=== PATIENT | female | born 1990 | race Caucasian/White ===

== ENCOUNTER 2016-06-09 11:19 | Emergency (ER) | payer OTHER ==
[2016-06-09 12:58] VITALS: BP 106/55
--- NOTE | 2016-06-09 13:31 | RAD ---
INDICATION: Foreign body sensation mid neck status post swallowing pills. COMPARISON: Comparison is made with a prior cervical spine series from December 07, 2014. TECHNIQUE: AP and lateral images of the soft tissue of the neck were obtained. FINDINGS: The epiglottis and aryepiglottic folds appear to be within normal limits. The retropharyngeal soft tissues appear normal. The airway appears patent. No foreign body is seen. IMPRESSION: NO EVIDENCE FOR FOREIGN BODY.
--- NOTE | 2016-06-09 16:00 | UC ---
Karolyn Garcia Alok, scribed for Elida King MD on 06/09/16 at 1302 . Complaint Female HPI - HPI Summary HPI Summary: 26 yo female c/o st and f/b sensation mid neck since last evening approx 22:30 when swallowed routine meds (bcp and mvi). Able to tolerate po fluids and solid but uncomfortable. No sob. No drooling. Voice hoarse. Recently has been seen by pcp for generalized sore throat, rst neg and full cx unremark. Notes children are on abx for sore throats. No rash. No GI issues. - History Of Current Complaint Chief Complaint: UCGU Stated Complaint: THROAT COMPLAINT Time Seen by Provider: 06/09/16 12:47 Hx Obtained From: Patient Hx Last Menstrual Period: 3 WEEKS AGO ?: No Onset/Duration: Sudden Onset - see hpi - Allergies/Home Medications Allergies/Adverse Reactions: Allergies Allergy/AdvReac Type Severity Reaction Status Date / Time No Known Allergies Allergy Verified 06/09/16 12:54 Home Medications: Home Medications Control 1 tab PO QPM 06/09/16 [History] PMH/Surg Hx/FS Hx/Imm Hx Previously Healthy: Yes Endocrine History Of: Denies: Diabetes, Thyroid Disease Cardiovascular History Of: Denies: Cardiac Disorders, Hypertension Respiratory History Of: Denies: COPD, Asthma GI/ History Of: Denies: Ulcer - Surgical History Surgical History: None - Social History Alcohol Use: None Substance Use Type: None Smoking Status (MU): Former Smoker - Immunization History Most Recent Influenza Vaccination: had 2013 Most Recent Tetanus Shot: had Most Recent Pneumonia Vaccination: none Review of Systems Constitutional: Negative Skin: Negative Eyes: Negative ENT: Ear Ache - mild au, Other - see hpi Respiratory: Negative Cardiovascular: Negative Gastrointestinal: Negative Genitourinary: Negative Motor: Negative Neurovascular: Negative Musculoskeletal: Negative Neurological: Negative Psychological: Negative All Other Systems Reviewed And Are Negative: Yes Physical Exam Triage Information Reviewed: Yes Appearance: Well-Nourished - sitting up Vital Signs: Initial Vital Signs Temp 98.3 F 06/09/16 12:54 Pulse 62 06/09/16 12:54 Resp 16 06/09/16 12:54 BP 106/55 06/09/16 12:54 Pulse Ox 98 06/09/16 12:54 Vital Signs Reviewed: Yes Eye Exam: Normal ENT: Positive: TMs normal - hitchcock, but good light reflex au, Other: - c/o tender mid ant neck just below level of cric cartilage region. Neck supple. No adenopathy noted. Tongue not elevated. Post visible pharynx mild redness, uvula midline, w/o tonsillar exudate or swelling. No stridor. Voice a little hoarse. Neck exam: Other - see above Neck: Positive: No Lymphadenopathy Respiratory Exam: Normal Respiratory: Positive: Chest non-tender, Lungs clear, Normal breath sounds, No respiratory distress Cardiovascular Exam: Normal Cardiovascular: Positive: RRR, No Murmur, Pulses Normal, Brisk Capillary Refill Abdominal Exam: Normal Abdomen Description: Positive: Nontender Musculoskeletal Exam: Normal Neurological Exam: Normal Psychological Exam: Normal Skin Exam: Normal - no rash visible or reported Diagnostics - Radiology Soft Tissue Neck XRAY Xray Interpretation: Positive (See Comments) - IMPRESSION: NO EVIDENCE OF FOREIGN BODY Radiology Interpretation Completed By: Radiologist Re-Evaluation - Re-Evaluation First Eval Re-Evaluation Time: 13:47 Complaint Female Dx - Course Course Of Treatment: No new problems in CCC. Neck xray - nad. Reviewed report w/ pt. D/w Dr. Tarango. Recommned Gaviscon or Maalox otc x 48-72 hours. If worse or no better then f/u ENT office. RST negative today. Questions answered to the best of my ability. - Differential Dx/Diagnosis Provider Diagnoses: Pill esophagitis. URI - Physician Notifications Discussed Patient Care With: Dr Tarango (ENT) @ [id number] Discharge - Discharge Plan Condition: Stable Disposition: HOME Patient Education Materials: Esophagitis (ED) Referrals: Hitesh Torre MD [Primary Care Provider] - Glen Tarango MD [Medical Doctor] - Additional Instructions: Gavison 1 - 2 tablespoon by mouth (liquid) after meals as needed for 48 hours. If symptoms no better, or worse, then please call Dr. Tarango's office to arrange follow up at his office. Please seek medical attention in the meantime for worse or new problems. The documentation as recorded by the Karolyn smallwood Alok accurately reflects the service I personally performed and the decisions made by me, Elida King MD.
== END 2016-06-09 14:06 | disposition home or self-care (01) ==
LOC: UCEAST 11:19
DX: K20.8 Other esophagitis (principal); J06.9 Acute upper respiratory infection, unspecified
CPT/HCPCS: 70360; 87651; 99211; G0463

== ENCOUNTER 2018-10-20 19:58 | Inpatient (IN) | payer OTHER ==
[2018-10-20] MEDS ORDERED: Promethazine INJ(RESTRICTED)* 25 MG/ML 1 ML VIAL IM PRN (21:12)
[2018-10-20] MEDS ORDERED: Nalbuphine* 10 MG/ML 1 ML VIAL IM PRN (21:12)
[2018-10-20] MEDS ORDERED: Lactated Ringers 1000 ML Bag* 1,000 ML IV ONE (22:41)
[2018-10-20] MEDS ORDERED: Buffered Lidocaine 1% SYRIN* 1 ML/SYRINGE INTRADERM ONE (22:41)
[2018-10-20] MEDS ORDERED: Witch Hazel PAD* JAR TOPICAL PRN (22:44)
[2018-10-20] MEDS ORDERED: Glycerin ADULT SUPP PR PRN (22:44)
[2018-10-20] MEDS ORDERED: Dibucaine 1% 28.35 GM TUBE PR PRN (22:44)
--- NOTE | 2018-10-20 22:51 | HP ---
General Information - Reason for Visit Full term presented in early labor. - General Information Maternal Age: 28 Grav: 3 Para: 2 SAB: 1 IEA: 0 Estimated Due Date: 10/20/18 Determined By: LMP Maternal Blood Type and Rh: A Positive - Results this Serology/RPR Result: Non-Reactive Rubella Result: Non-Immune HBsAg Result: Negative HIV Result: Negative GBS Culture Result: Positive Past Medical History Delivery History: See Records Pertinent Past Medical History: See Records Pertinent Past Surgical History: See Records Pertinent Family History: See Records - Antepartal Records Antepartal Records: Reviewed, Uncomplicated Review of Systems Constitutional: Uncomfortable CV Complaint: No Respiratory: Shortness of Breath: No Gastrointestinal: No Nausea/Vomiting, Normal Bowel Movement Genitourinary: No Dysuria, No Bleeding, No Leaking Fluid Musculoskeletal: No Complaint, No Epigastric Pain, Contractions - moderate per patient Neurological: No Headache, No Visual Changes Movement: Normal Exam Allergies/Adverse Reactions: Allergies No Known Allergies Allergy (Verified 10/14/18 21:42) Temp 98.8 BP 115/69 P 93 RR 18 - Measurements Height: 5 ft 9 in Weight: 209 lb Weight in lbs: [phone] Body Mass Index (BMI): 30.8 Pre- Weight: 168 lb Weight Gained This : 41 lbs and 0 ozs - Exam Breast: Breast Exam Deferred CVA: No CVA Tenderness Extremities: No Edema Heart: Normal Rhythm/Heart Sounds HEENT: No Significant Findings Lungs: Clear Bilaterally Reflexes: DTR 2+ Thyroid: No Thyromegaly - Abdominal Exam Abdomen Exam: Non-Tender, Fundal Height Consistent with Dates - Ultrasound/Biophysical Profile Ultrasound Status: Not Done Biophysical Profile: Normal Reactive NST Targeted Exam Findings See L&D Outpatient Visit Provider Note for Findings: N/A Cervical Exam: 2cm Effacement: 70% Station: -2 Presenting Part: Vertex - Pelvic exam per triaging nurse at Labor/delivery 845pm Membrane Status: Intact Bleeding/Discharge: None EFM Findings - External Monitor Findings Baseline Heart Rate: 140 External Monitor Findings: Accelerations Present, No Pattern of Variable or Late Decelerations Contractions: Regular, Moderate, < 45 Seconds - q2-4 minutes Assessment/Plan - Assessment Patient presented in early labor at 2cm dilated per LD nurse at 845 pm. She was Rx with Nubain and phenergan analgesia and at 10pm was completely dilated and delivered precipitiously at 1010pm. - Obstetrical Risk Factors Obstetrical Risk Factors: GBS Positive - Plan Plan: Observe - Admit to Maternal unit.
--- NOTE | 2018-10-20 22:59 | PROCNOTE ---
[facility] OB: Delivery Note - Delivery A Date of : 10/20/18 Time of : 22:10 Sex: Male Weight at : 8 lb 4 oz Score 1 Minute: 8 Score 5 Minutes: 9 Gestational Age in Weeks and Days at Delivery: 40 Weeks and 0 Days Delivery Method: Spontaneous Vaginal Labor: Spontaneous Did Patient attempt ?: N/A, No Previous Amniotic Fluid: Clear Estimated Blood Loss: 200 Anesthesia/Analgesia: None - Nursery Level of Nursery: Regular/Bedside - Perineum Perineal Injury: Vaginal Laceration, 1st Degree Perineal Repair: By Delivering Practioner - Dr. Hitesh Torre - Events Delivery Events of Note: Precipitous Delivery, Antibiotics Indicated - Not Given
[2018-10-20] MEDS ORDERED: Lactated Ringers 1000 ML Bag* 1,000 ML IV SCH ×2 (23:00)
[2018-10-20 23:44] LABS: Urine Benzodiazepine Screen None Detected (None Detect); Urine Opiates Screen None Detected (None Detect)
[2018-10-21] MEDS ORDERED: Lidocaine 1% INJ* 10 MG/ML 30 ML SDV ONE (00:41)
[2018-10-21] MEDS: Acetaminophen TAB* 325 MG PO PRN ×3 (02:14→19:48)
[2018-10-21] MEDS ORDERED: Measles, Mumps,Rubella VACC* 0.5 ML/VIAL SUBCUT ONE (02:22)
[2018-10-21] MEDS: Ibuprofen TAB* 600 MG PO PRN ×2 (05:00→14:41)
[2018-10-21 07:27] LABS: ABS Basophils 0.1 10^3/ul (0-0.2); ABS Lymphocytes 1.6 10^3/ul (1.0-4.8); ABS Neutrophils 15.1 10^3/ul (1.5-7.7); Eosinophil % 0.1 %; Hematocrit 36 % (35-47); Hemoglobin 12.6 g/dL (12.0-16.0); Lymphocyte % 9.1 %; Mean Corpuscular HGB Conc 35 g/dL (31-36); Mean Corpuscular Hemoglobin 33 pg (27-31); Mean Corpuscular Volume 94 fL (80-97); Mean Platelet Volume 8.4 fL (7.4-10.4); Nucleated Red Blood Cells % 0.1; Platelet Count 198 10^3/uL (150-450); Red Blood Count 3.84 10^6 /uL (3.70-4.87); Red Cell Distribution Width 13 % (10-15); White Blood Count 17.9 10^3/uL (3.5-10.8)
[2018-10-21] MEDS ORDERED: Ferrous Gluconate TAB* 324 MG TAB PO SCH (09:00)
[2018-10-21] MEDS: Docusate CAP* 100 MG PO SCH ×3 (10:03→19:48)
[2018-10-21] MEDS: Simethicone TAB* 80 MG TAB.CHEW PO SCH ×2 (13:59→17:53)
[2018-10-22] MEDS: Ibuprofen TAB* 600 MG PO PRN ×3 (00:48→14:15)
[2018-10-22] MEDS: Docusate CAP* 100 MG PO SCH ×2 (08:07→14:16)
[2018-10-22 08:42] VITALS: BP 98/51
== END 2018-10-22 15:00 | disposition home or self-care (01) | DRG 560 ==
LOC: MCHOBOUT 19:58 → MCHOB 22:11
PROVIDERS: ADMIT Obstetrics & Gynecology; ATTEND Obstetrics & Gynecology
PROC: 10E0XZZ Delivery of Products of Conception, External Approach (ICD-10-PCS; principal; 2018-10-20)
PROC: 0HQ9XZZ Repair Perineum Skin, External Approach (ICD-10-PCS; 2018-10-20)
PROC: 4A1HXCZ Monitoring of Products of Conception, Cardiac Rate, External Approach (ICD-10-PCS; 2018-10-20)
DX: O62.3 Precipitate labor (principal); Z37.0 Single live birth; O77.0 Labor and delivery complicated by meconium in amniotic fluid; O69.81X0 Labor and delivery complicated by cord around neck, without compression, not applicable or unspecified; O70.0 First degree perineal laceration during delivery; Z3A.40 40 weeks gestation of pregnancy
CPT/HCPCS: 36415; 80307; 85025; 88307; 90707; A9270-GY; J2300; J2550

== ENCOUNTER 2019-01-09 13:47 | Emergency (ER) | payer OTHER ==
[2019-01-09 14:08] VITALS: BP 106/65
--- NOTE | 2019-01-09 14:40 | UC ---
Eye Complaint HPI - HPI Summary HPI Summary: red eyes, draining yellow discharge x 24h. 2 of her son's are currently being treated for pink eye - History of Current Complaint Chief Complaint: UCEye Stated Complaint: EYE IRRITATION Time Seen by Provider: 01/09/19 14:21 Hx Obtained From: Patient Hx Last Menstrual Period: no period Onset/Duration: Sudden Onset Timing: Constant Pain Intensity: 0 Aggravating Factor(s): Nothing Alleviating Factor(s): Nothing Associated Signs And Symptoms: Positive: Drainage (Purulent). Negative: Vision Impairment Bilateral - Allergies/Home Medications Allergies/Adverse Reactions: Allergies Allergy/AdvReac Type Severity Reaction Status Date / Time No Known Allergies Allergy Verified 01/09/19 14:03 PMH/Surg Hx/FS Hx/Imm Hx Previously Healthy: Yes - Surgical History Surgical History: None - Family History Known Family History: Positive: None - Social History Occupation: Employed Full-time Lives: With Family Alcohol Use: None Substance Use Type: None Smoking Status (MU): Never Smoked Tobacco Type: Cigarettes Have You Smoked in the Last Year: No - Immunization History Most Recent Influenza Vaccination: 2018 Most Recent Tetanus Shot: had Most Recent Pneumonia Vaccination: none Review of Systems All Other Systems Reviewed And Are Negative: Yes Constitutional: Positive: Negative Skin: Positive: Negative Eyes: Positive: Drainage, Eye Redness ENT: Positive: Negative. Negative: Sore Throat Respiratory: Positive: Negative Cardiovascular: Positive: Negative Neurological: Negative: Negative, Headache Is Patient Immunocompromised?: No Physical Exam Triage Information Reviewed: Yes Appearance: Well-Appearing, No Pain Distress, Well-Nourished Vital Signs: Initial Vital Signs Temp 98.5 F 01/09/19 14:04 Pulse 88 01/09/19 14:04 Resp 18 01/09/19 14:04 BP 106/65 01/09/19 14:04 Pulse Ox 97 01/09/19 14:04 Vital Signs Reviewed: Yes Eyes: Positive: Conjunctiva Inflamed Respiratory Exam: Normal Respiratory: Positive: Lungs clear Cardiovascular Exam: Normal Cardiovascular: Positive: RRR Neurological Exam: Normal Psychological Exam: Normal Skin Exam: Normal Eye Complaint Course/Dx - Differential Dx/Diagnosis Differential Diagnosis/HQI/PQRI: Conjunctivitis, Corneal Abrasion, Foreign Body Provider Diagnosis: Conjunctivitis Discharge ED - Sign-Out/Discharge Documenting (check all that apply): Patient Departure All imaging exams completed and their final reports reviewed: No Studies - Discharge Plan Condition: Good Disposition: HOME Prescriptions: Ciprofloxacin 0.3% OPTH.GARDENIA* [Cipro 0.3% Opth*] 2 drop BOTH EYES Q4H #1 btl Patient Education Materials: Conjunctivitis (ED) Referrals: Korin Moser [Primary Care Provider] - 2 Days (if not improving) Additional Instructions: use good hand washing after touching eyes Use eye drops as directed - Billing Disposition and Condition Condition: GOOD Disposition: Home
== END 2019-01-09 14:47 | disposition home or self-care (01) ==
LOC: UCEAST 13:47
DX: H10.9 Unspecified conjunctivitis (principal)
CPT/HCPCS: 99212; G0463